=== PATIENT | male | born 1960 | race Caucasian/White ===

== ENCOUNTER 2022-01-31 08:19 | Day surgery (SDC) | payer OTHER ==
[2022-01-27 14:55] VITALS: BMI 31.7
[2022-01-31 10:07] VITALS: TEMP 97.8
[2022-01-31 10:36] VITALS: BP 103/74; PULSE 65
== END 2022-01-31 10:38 | disposition home or self-care (01) ==
LOC: FASU-ENDO 08:19
PROVIDERS: ATTEND Internal Medicine Gastroenterology
PROC: 0DJD8ZZ Inspection of Lower Intestinal Tract, Via Natural or Artificial Opening Endoscopic (ICD-10-PCS; principal; 2022-01-31 09:42)
DX: Z12.11 Encounter for screening for malignant neoplasm of colon (principal); K57.30 Diverticulosis of large intestine without perforation or abscess without bleeding